=== PATIENT | female | born 1995 | race Caucasian/White ===

== ENCOUNTER 2023-06-05 15:23 | Emergency (ER) | payer MEDICAID, BC | END 2023-06-05 18:08 | disposition home or self-care (01) | LOC: FB.ED 15:23 | DX: O23.42 Unspecified infection of urinary tract in pregnancy, second trimester (principal); B96.20 Unspecified Escherichia coli [E. coli] as the cause of diseases classified elsewhere; N39.0 Urinary tract infection, site not specified; O99.891 Other specified diseases and conditions complicating pregnancy; R10.2 Pelvic and perineal pain; Z88.1 Allergy status to other antibiotic agents; Z88.2 Allergy status to sulfonamides; Z3A.22 22 weeks gestation of pregnancy | CPT/HCPCS: 99283 ==